=== PATIENT | female | born 1960 | race Caucasian/White ===

== ENCOUNTER → 2016-11-05 | Outpatient (CLI) | payer OTHER ==
[~2016-11-05] MED LIST: AMITRIPTYLINE H25 M1 PO; TYLENOL 500MG500 MG PO
== END ==
LOC: COL.RAD 10:19
DX: R68.81 Early satiety (principal); R10.13 Epigastric pain

== ENCOUNTER → 2016-12-03 | Outpatient (CLI) | payer OTHER ==
[2016-12-03 15:54] LABS: PROTHROMBIN TIME 10.7 SECONDS (9.7-12.8)
[2016-12-03 16:07] LABS: TOTAL IRON BINDING CAPACITY 301 ug/dL (265-497)
[2016-12-03 16:35] LABS: FERRITIN 115 ng/mL (11-264)
[2016-12-05 17:24] LABS: ALPHA 1 ANTITRYPSIN TOTAL 137 mg/dL (())
== END ==
LOC: COL.LAB 14:27 → ZCOL.LAB 14:27
PROVIDERS: Physician Assistant
DX: K59.00 Constipation, unspecified (principal); R74.8 Abnormal levels of other serum enzymes; R19.7 Diarrhea, unspecified; R11.0 Nausea; R12 Heartburn; R79.0 Abnormal level of blood mineral; R79.89 Other specified abnormal findings of blood chemistry

== ENCOUNTER 2016-12-13 13:31 | Day surgery (SDC) | payer OTHER ==
[~2016-12-13] VITALS: Ht 167.6 cm; Wt 61.6 kg
[2016-12-13 14:11] VITALS: BP 122/64; PULSE 91; TEMP 97
[2016-12-13] MEDS ORDERED: AMITRIPTYLINE H25 M1 PO (14:21)
[2016-12-13] MEDS ORDERED: TYLENOL 500MG500 MG PO (14:22)
[2016-12-13 15:25] VITALS: BP 113/67; PULSE 88; TEMP 97.3
[2016-12-13 15:40] VITALS: BP 110/85; PULSE 90
[2016-12-13 17:06] VITALS: BP 114/66; PULSE 89
== END 2016-12-13 16:27 | disposition home or self-care (01) ==
LOC: SDCO 13:31
DX: K21.9 Gastro-esophageal reflux disease without esophagitis (principal); K30 Functional dyspepsia; K57.30 Diverticulosis of large intestine without perforation or abscess without bleeding; K59.00 Constipation, unspecified
CPT/HCPCS: OP; J2250; J2405; J3010; J7030